=== PATIENT | female | born 1970 | race African-American/Black ===

== ENCOUNTER 2019-04-10 12:13 | Inpatient (IN) ==
[2019-04-10] MEDS ORDERED: NS 1,000 ML IV ONE (12:48)
[2019-04-10] MEDS ORDERED: APRESOLINE IV ONE (12:49)
[2019-04-10] MEDS ORDERED: XYLOCAINE-MPF 1% INJ ONE (12:49)
[2019-04-10] MEDS ORDERED: TORADOL IV ONE (12:49)
[2019-04-10] MEDS ORDERED: ROCEPHIN IM ONE (12:49)
[2019-04-10 12:53] LABS: URINE SOURCE CLEAN CATCH
[2019-04-10 12:57] LABS: BASO# 0.03 X1000 (0.0-0.2); BASO% 0.1 % (0.0-0.8); EOS# 0.02 X1000 (0.0-0.7); EOS% 0.1 % (0.0-10.0); HEMATOCRIT 35.2 % (37.0-47.0); HEMOGLOBIN 10.9 g/dL (12.0-16.0); IMM GRAN# 0.09 X1000 (0.0-0.04); IMM GRAN% 0.4 % (0.0-0.5); LYMPH% 14.8 % (20.5-51.1); MCH 21.2 PG (27-31); MCV 68.3 FL (81-99); MONO# 1.81 X1000 (0.11-0.59); MONO% 8.1 % (1.7-9.3); MPV 9.6 FL (7.4-10.4); NEUT# 17.09 X1000 (1.4-6.5); NEUT% 76.5 % (42.2-75.2); PLT 482 X1000 (130-400); RBC 5.15 XMIL (4.2-5.4); RDW 17.4 % (11.5-14.5); WBC 22.34 X1000 (4.8-10.8)
[2019-04-10 12:58] LABS: BILIRUBIN URINE NEGATIVE (NEGATIVE); BLOOD URINE NEGATIVE (NEGATIVE); COLOR STRAW; GLUCOSE URINE NEGATIVE (NEGATIVE); KETONE URINE NEGATIVE (NEGATIVE); LEUKOCYTES URINE NEGATIVE (NEGATIVE); NITRITE URINE NEGATIVE (NEGATIVE); PH URINE 6.5; PROTEIN URINE NEGATIVE (NEGATIVE); SP GRAVITY URINE 1.006; TURBIDITY URINE CLEAR (CLEAR); UROBILINOGEN URINE NORMAL (NORMAL)
[2019-04-10 13:02] LABS: INR 1.02; PROTIME 13.9 Seconds (11.0-16.0)
[2019-04-10 13:07] LABS: AGAP 12; ALBUMIN 4.2 g/dL (3.5-5.0); ALKALINE PHOSPHATASE 136 U/L (32-104); BUN 7 mg/dL (8-22); CALCIUM 9.4 mg/dL (8.8-10.2); CHLORIDE 99 mmol/L (98-107); CK PROFILE 79 U/L (24-173); COSMO 263; CREATININE 0.9 mg/dL (0.5-0.9); ESTIMATED GFR > 60; GLUCOSE 110 mg/dL (70-104); GOT 15 U/L (10-30); GPT 15 U/L (10-36); POTASSIUM 4.2 mmol/L (3.5-5.1); SODIUM 132 mmol/L (136-145); TCO2 21 mmol/L (25-35); TOTAL PROTEIN 7.4 g/dL (6.3-8.3)
[2019-04-10] MEDS ORDERED: TYLENOL PO ONE (13:20)
[2019-04-10 13:21] LABS: BANDS 2 % (0-1); LYMPHS 16 % (21-51); MONO 4 % (1-9); SEGS 78 % (42-75)
[2019-04-10 13:43] LABS: UR EPITHELIAL CELLS <10 /HPF (<10); URINE BACTERIA 1+ /HPF; URINE YEAST NONE SEEN
--- NOTE | 2019-04-10 14:23 | Diag Imaging Result Doc PS360 ---
EXAM: CHEST-1 VIEW HISTORY: sepsis TECHNIQUE: Single view COMPARISON: None. FINDINGS: The lungs are well expanded. The heart is mildly enlarged. The vessels are not distended. There are no infiltrates. No effusion identified. IMPRESSION: Mild cardiomegaly Electronically signed by Manish 04/10/2019 2:21 PM
--- NOTE | 2019-04-10 14:41 | Diag Imaging Result Doc PS360 ---
EXAM: CT ABD/PELVIS W/IV CONT ONLY HISTORY: right flank pain and tender, right abd pain TECHNIQUE: CT abdomen and pelvis with intravenous contrast COMPARISON: 10/07/2016 FINDINGS: The gallbladder has been removed. No focal hepatic abnormality. Normal spleen, pancreas, adrenal glands, and kidneys. Normal aorta. Normal appendix. No abscess. There are many scattered colonic diverticula. No bowel obstruction. There is an approximately 7 x 8 x 9 cm mixed density lesion within the fundus of the uterus. There is also an 18 mm thick-walled left ovarian cyst. Urinary bladder is distended and appears normal. There is a fat filled left inguinal hernia. IMPRESSION: 1.Large degenerating uterine fibroid 2.Colonic diverticulosis 3.Cholecystectomy 4.Small thick-walled left ovarian cyst This exam was performed using automated exposure control, adjustment of mA or kV according to patient size, and/or use of iterative reconstruction technique. Electronically signed by Manish 04/10/2019 2:39 PM
[2019-04-10] MEDS ORDERED: ZOSYN 4.5 GM in NS 100 ML IV ONE (15:05)
[2019-04-10] MEDS ORDERED: VANCOMYCIN 1 GM/NS 1 GM/250 ML IVPB IV ONE (15:05)
[2019-04-10] MEDS ORDERED: DILAUDID IV ONE (15:24)
[2019-04-10] MEDS ORDERED: TYLENOL PO PRN ×2 (15:41→19:24)
[2019-04-10] MEDS ORDERED: NORCO-7.5 PO PRN (15:41)
[2019-04-10] MEDS ORDERED: ZOFRAN IV PRN ×2 (15:41→19:25)
[2019-04-10] MEDS ORDERED: VANCOMYCIN IV PER PHARMACY MISC SCH (15:45)
[2019-04-10] MEDS ORDERED: NS 1,000 ML IV SCH (15:45)
--- NOTE | 2019-04-10 16:01 | PROVIDER DOCUMENTATION ---
This chart was entered by Emily Vizcaino Scribe, acting as scribe for Galo Armas MD. HPI-Female /OB/Breast - General Chief Complaint: UTI Symptoms Stated Complaint: FEMALE / FEVER Time Seen by Provider: 04/10/19 12:38 Source: reports: patient Allergies/Adverse Reactions: Patient Allergies Allergy/AdvReac Type Severity Reaction Status Date / Time No Known Allergies Allergy Verified 06/18/18 06:00 Home Medications: Home Medication List Medication Instructions Recorded Confirmed Last Taken Type NK [No Home Medications] 04/10/19 04/10/19 Unknown History - History of Present Illness-Female /OB Nature of Presenting Problem: 48yof presents to ED cc right flank and RLQ pain, diarrhea, dysuria, bladder spasm, frequency for 3 weeks, chills and fever for 24hrs. Pt rpeorts she has hx of HTN but won't take her b/p meds because she doesn't like them. B/p is 189/120 upon exam. Does patient report she is ?: No Location of complaint: reports: right flank Radiation: reports: RLQ Quality of Pain: reports: sharp Severity in ED: reports: moderate Onset/Duration: reports: other (3 weeks) Timing: reports: still present Context/Activities at Onset: reports: moderate activity Vaginal Symptoms: reports: no symptoms Vaginal Bleeding Amount: None Urinary Symptoms: reports: dysuria, frequency, low back pain Related Symptoms: reports: no symptoms Modifying Factors: worse with: urinating Associated Symptoms: reports: back/neck pain (back), diarrhea, fever/chills Similar Symptoms Previously?: No Recently seen or treated by another doctor?: No Review of Systems - Adult - REVIEW OF SYSTEMS - ADULT Constitutional: reports: see HPI, chills, fever. denies: fatique Eyes: reports: no symptoms reported Ears, Nose, Mouth & Throat: reports: no symptoms reported Cardiovascular: reports: no symptoms reported Respiratory: reports: no symptoms reported Gastrointestinal: reports: see HPI, abdominal pain (RLQ), diarrhea. denies: vomiting Genitourinary: reports: see HPI, dysuria, frequency, flank pain (right), other (bladder spasm) Musculoskeletal: reports: no symptoms reported Integumentary: reports: no symptoms reported Neurological: reports: no symptoms reported Psychiatric: reports: no symptoms reported Endocrine: reports: no symptoms reported Hematologic/Lymphatic: reports: no symptoms reported Allergic/Immunologic: reports: no symptoms reported All Other Systems: Reviewed and Negative Past History - Adult - PAST MEDICAL HISTORY-ADULT Review of Records: reports: Nursing Assessment Review, Medications Reviewed, Social history reviewed & non-contributory. Major Childhood Illnesses: reports: denies history Cardiovascular: reports: denies history, HTN (non compliance) Respiratory: reports: denies history Gastrointestinal: reports: cholelithiasis, GERD Obstetrical/Gynecological: reports: denies history Genitourinary: reports: denies history Musculoskeletal: reports: denies history Neurological: reports: denies history Endocrine/Immune: reports: denies history Other Conditions: reports: denies history - PRIOR SURGERIES/PROCEDURES Surgical/Procedure History: reports: cholecystectomy - IMMUNIZATION STATUS Childhood Immunizations: See Nurse Assessment Flu Vaccine: See Nurse Assessment - FAMILY HISTORY Family History: reviewed, not pertinent - SOCIAL HISTORY Smoking: cigarettes, less than 1 pack/day Provider spent 3-5 mins advising pt. on dangers of tobacco.: Discussed manners to quit use, and f/u contacts for add'l counseling. Physical Exam-General - PHYSICAL EXAM-ADULT Initial Vital Signs Reviewed: Yes - CONSTITUTIONAL General Appearance: alert, moderate distress. negative: anxious, combative - EYES Eyes: PERRL/EOMI, pink conjunctivae - HEAD, EARS, NOSE, MOUTH & THROAT HENMT: normocephalic/atraumatic, moist mucous membranes. negative: angioedema - NECK Neck: supple, normal inspection - RESPIRATORY Respiratory: chest non-tender, lungs clear, normal breath sounds, no respiratory distress, no accessory muscle use. negative: wheezing - CARDIOVASCULAR Cardiovascular: normal peripheral pulses, no edema, tachycardia. negative: bradycardia - GASTROINTESTINAL (ABDOMEN) Abdominal Exam: normal bowel sounds, soft, tenderness (RLQ) - MUSCULOSKELETAL Back Exam: no vertebral tenderness, CVA tenderness (right) Extremity: normal range of motion, normal inspection, normal capillary refill. negative: deformity - SKIN Integumentary: normal color, normal turgor. 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 negative: anxious, disheveled Progress - PLAN OF CARE/RESULTS Progress/Plan/Lab Results: Vital Signs - 8 hr 04/10/19 12:18 04/10/19 13:11 04/10/19 14:45 Temperature 102.6 F H 103.3 F H 99.2 F Pulse Rate 133 H 117 H 113 H Respiratory Rate 20 20 21 Blood Pressure 185/97 184/86 159/91 O2 Sat by Pulse Oximetry 95 100 97 Laboratory Results - last 24 hr 04/10/19 04/10/19 04/10/19 12:20 12:20 12:20 WBC 22.34 H RBC 5.15 Hgb 10.9 L Hct 35.2 L MCV 68.3 L MCH 21.2 L MCHC 31.0 L RDW Std Deviation 17.4 H Plt Count 482 H MPV 9.6 Immature Gran % (Auto) 0.4 Neut % (Auto) 76.5 H Lymph % (Auto) 14.8 L [place] % (Auto) 8.1 Eos % (Auto) 0.1 Baso % (Auto) 0.1 Immature Gran # (Auto) 0.09 H Neut # (Auto) 17.09 H Lymph # (Auto) 3.30 [place] # (Auto) 1.81 H Eos # (Auto) 0.02 Baso # (Auto) 0.03 Segmented Neutrophils 78 H Band Neutrophils 2 H Lymphocytes 16 L Monocytes 4 PT INR PTT (Actin FS) Sodium 132 L Potassium 4.2 Chloride 99 Carbon Dioxide 21 L Anion Gap 12 BUN 7 L Creatinine 0.9 Estimated GFR/1.73 m2 > 60 BUN/Creatinine Ratio 8 Glucose 110 H Calculated Osmolality 263 Calcium 9.4 Total Bilirubin 0.40 AST 15 ALT 15 Alkaline Phosphatase 136 H Creatine Kinase 79 Troponin T Total Protein 7.4 Albumin 4.2 Globulin 3.0 Albumin/Globulin Ratio 1.0 Plasma Lactate Urine Source CLEAN CATCH Urine Color STRAW Urine Turbidity CLEAR Urine pH 6.5 Ur Specific Norman 1.006 Urine Protein NEGATIVE Ur Glucose (Stick) NEGATIVE Ur Ketones (Stick) NEGATIVE Urine Blood NEGATIVE Urine Nitrite NEGATIVE Urine Bilirubin NEGATIVE Urobilinogen Dipstick NORMAL Urine Leukocytes NEGATIVE Urine WBC (Auto) 10-20 A Urine RBC (Auto) 10-20 A U Epithel Cells (Auto) <10 Urine Bacteria (Auto) 1+ Urine Crystals Not Reportable Small Round Cells Not Reportable Urine Casts Not Reportable Urine Yeast-like Cells NONE SEEN Urine Test 04/10/19 04/10/19 04/10/19 12:20 12:20 12:20 WBC RBC Hgb Hct MCV MCH MCHC RDW Std Deviation Plt Count MPV Immature Gran % (Auto) Neut % (Auto) Lymph % (Auto) [place] % (Auto) Eos % (Auto) Baso % (Auto) Immature Gran # (Auto) Neut # (Auto) Lymph # (Auto) [place] # (Auto) Eos # (Auto) Baso # (Auto) Segmented Neutrophils Band Neutrophils Lymphocytes Monocytes PT 13.9 INR 1.02 PTT (Actin FS) 33.0 Sodium Potassium Chloride Carbon Dioxide Anion Gap BUN Creatinine Estimated GFR/1.73 m2 BUN/Creatinine Ratio Glucose Calculated Osmolality Calcium Total Bilirubin AST ALT Alkaline Phosphatase Creatine Kinase Troponin T < 0.010 Total Protein Albumin Globulin Albumin/Globulin Ratio Plasma Lactate 1.0 Urine Source Urine Color Urine Turbidity Urine pH Ur Specific Norman Urine Protein Ur Glucose (Stick) Ur Ketones (Stick) Urine Blood Urine Nitrite Urine Bilirubin Urobilinogen Dipstick Urine Leukocytes Urine WBC (Auto) Urine RBC (Auto) U Epithel Cells (Auto) Urine Bacteria (Auto) Urine Crystals Small Round Cells Urine Casts Urine Yeast-like Cells Urine Test 04/10/19 12:46 WBC RBC Hgb Hct MCV MCH MCHC RDW Std Deviation Plt Count MPV Immature Gran % (Auto) Neut % (Auto) Lymph % (Auto) [place] % (Auto) Eos % (Auto) Baso % (Auto) Immature Gran # (Auto) Neut # (Auto) Lymph # (Auto) [place] # (Auto) Eos # (Auto) Baso # (Auto) Segmented Neutrophils Band Neutrophils Lymphocytes Monocytes PT INR PTT (Actin FS) Sodium Potassium Chloride Carbon Dioxide Anion Gap BUN Creatinine Estimated GFR/1.73 m2 BUN/Creatinine Ratio Glucose Calculated Osmolality Calcium Total Bilirubin AST ALT Alkaline Phosphatase Creatine Kinase Troponin T Total Protein Albumin Globulin Albumin/Globulin Ratio Plasma Lactate Urine Source Urine Color Urine Turbidity Urine pH Ur Specific Norman Urine Protein Ur Glucose (Stick) Ur Ketones (Stick) Urine Blood Urine Nitrite Urine Bilirubin Urobilinogen Dipstick Urine Leukocytes Urine WBC (Auto) Urine RBC (Auto) U Epithel Cells (Auto) Urine Bacteria (Auto) Urine Crystals Small Round Cells Urine Casts Urine Yeast-like Cells Urine Test NEGATIVE Orders Category Date Time Status Admit - [facility] Routine AdmDCTranf 04/10/19 15:41 Active Cardiac Monitoring DIRECTED Care 04/10/19 12:46 Active IV Insertion ORDERED Care 04/10/19 12:46 Completed Notify MD of + Sepsis Screen NOW Care 04/10/19 12:46 Active Notify Physician As Ordered Care 04/10/19 12:46 Active Nursing- MD Consult Request ROUTINE Care 04/10/19 15:37 Active MD [Physician/Provider Consults] Routine Cons 04/10/19 15:37 Ordered Regular Diet Diet 04/10/19 15:41 Active CHEST-1 VIEW [RAD] Stat Exams 04/10/19 12:[address] ABD/PELVIS W/IV CONT ONLY [CT] Stat Exams 04/10/19 14:15 Completed BLOOD CULTURE [BLDCUL] Stat Lab 04/10/19 12:46 Results CBC WITH DIFF [HEME] Stat Lab 04/10/19 12:20 Completed CK PROFILE [SP CHEM] Stat Lab 04/10/19 12:20 Completed COMPREHENSIVE METABOLIC PANEL [CHEM] Stat Lab 04/10/19 12:20 Completed LACTATE, PLASMA [CHEM] Lab 04/10/19 12:20 Completed LACTATE, PLASMA [CHEM] Lab 04/10/19 16:00 Uncollected LACTATE, PLASMA [CHEM] Lab 04/10/19 19:00 Uncollected TEST-URINE [PREG] Stat Lab 04/10/19 12:46 Completed PROTIME WITH INR [COAG] Stat Lab 04/10/19 12:20 Completed PTT [COAG] Stat Lab 04/10/19 12:20 Completed TROPONIN T Stat Lab 04/10/19 12:20 Completed URINALYSIS W/POSS RFLX CULT [URINALYSIS] Stat Lab 04/10/19 12:20 Completed URINE CULTURE [RM] Routine Lab 04/10/19 13:43 Ordered URINE MANUAL MICROSCOPIC [URINALYSIS] Stat Lab 04/10/19 12:20 Completed 0.9% Sodium Chloride Inj [Ns] 1,000 ml Med 04/10/19 15:45 Ordered IV 75 mls/hr 0.9% Sodium Chloride Inj [Ns] 1,000 ml Med 04/10/19 12:48 Discontinued IV 999 mls/hr Acetaminophen [Tylenol] Med 04/10/19 13:20 Discontinued 1,000 mg PO NOW ONE Acetaminophen [Tylenol] Med 04/10/19 15:41 Ordered 650 mg PO Q6H PRN PRN CefTRIAXONE [Rocephin] Med 04/10/19 12:49 Discontinued 1 gm IM NOW ONE Hydralazine [Apresoline] Med 04/10/19 12:49 Discontinued 20 mg IV NOW ONE Hydrocodone/APAP 7.5 mg/325 mg [Valders-7.5] Med 04/10/19 15:41 Ordered See Dose Instructions PO Q4H PRN Hydromorphone [Dilaudid] Med 04/10/19 15:24 Discontinued 0.5 mg IV NOW ONE Ketorolac [Toradol] Med 04/10/19 12:49 Discontinued 30 mg IV NOW ONE Lidocaine 1% Pf [Xylocaine-Mpf 1%] Med 04/10/19 12:49 Discontinued 5 ml INJ NOW ONE Ondansetron [Zofran] Med 04/10/19 15:41 Ordered 4 mg IV Q4H PRN PRN Pharmacy Order [Vancomycin IV Per Pharmacy] Med 04/10/19 15:45 Ordered 1 each MISC DIRECTED Piperacillin/Tazobactam [Zosyn] 3.375 gm Med 04/10/19 21:00 Ordered 0.9% Sodium Chloride Inj [Ns] 50 ml IV Q6H Piperacillin/Tazobactam [Zosyn] 4.5 gm Med 04/10/19 15:05 Active 0.9% Sodium Chloride Inj [Ns] 100 ml IV NOW Vancomycin 1 gm/Ns Med 04/10/19 15:05 Active 1 gm in 250 ml IV NOW Oxygen Device Stat Oth 04/10/19 12:46 Active Transfer/Admit Order [TRANSFER] Routine Transfer 04/10/19 15:37 Ordered Result Diagrams: 04/10/19 12:20 04/10/19 12:20 - XRAY 1 XRAY: Bilateral XRAY Study: Chest Impression: See EMR Report (IMPRESSION: Mild cardiomegaly Electronically signed by Manish 04/10/2019 2:21 PM) - CT/MRI 1 CT Study: Abdomen, Pelvis Impression: See EMR Report (IMPRESSION: 1.Large degenerating uterine fibroid 2.Colonic diverticulosis 3.Cholecystectomy 4.Small thick-walled left ovarian cyst This exam was performed using automated exposure control, adjustment of mA or kV according to patient size, and/or use of iterative reconstruction technique. Electronically signed by Manish 04/10/2019 2:39 PM) - CONSULTS/PCP/HOSPITALIST Notification #1 *Consult/PCP/Hospitalist*: Dr. Woods Time Discussed: 15:30 (GLAD TO CONSULT AT [facility]) Consult Disposition: other (would like pt admitted to hospitalist) #2 Consult: Dr. Kennedy Time Discussed: 15:30 Consult Disposition: Admit (will transfer to [facility]) Departure - Departure Date of Disposition Decision: 04/10/19 Time of Disposition Decision: 15:34 DIAGNOSIS: Uterine mass Leukocytosis, unspecified Qualifiers: Leukocytosis type: unspecified Qualified Code(s): D72.829 - Elevated white blood cell count, unspecified Fever Qualifiers: Fever type: unspecified Qualified Code(s): R50.9 - Fever, unspecified Abdominal pain Qualifiers: Abdominal location: right lower quadrant Qualified Code(s): R10.31 - Right l ower quadrant pain HTN (hypertension) Qualifiers: Hypertension type: essential hypertension Qualified Code(s): I10 - Essential (primary) hypertension Disposition: ADMITTED INPATIENT 09 Certified Medical Emergency: Emergent Condition: Stable Additional Instructions: ED Follow Up Instructions: You have been treated by a care provider in the Emergency Department. These instructions are being provided to you so you can have an understanding of how to care for yourself upon discharge. Upon discharge from the Emergency Department, you are responsible for making arrangements for follow-up care by a physician of your choice. Take all prescribed medications as directed. Return to the Emergency Department immediately for any new or worsening symptoms. You may call the Physician Referral phone number at [phone] to obtain a list of Physicians who are taking new patients. Referrals and Follow-Ups: None,PCP [Primary Care Provider] - Discharge Education: Steps to Quit Smoking, [id number] - Critical Care Note This patient required my direct & personal management of CC.: No Attestation - Physician/ SNEHA Attestation Patient care was provided by Advanced Practice Provider:: No The physician spent face to face time with patient:: Yes Advanced Practice Provider documentation review:: Supervising physician onsite and consulted in the evaluation and care of this patient. The physician did have a face to face encounter with the patient. This chart was documented by the indicated leesaibdarinel, (Emily Vizcaino, Scribe) and accurately reflects the services I performed and decisions made by me, Galo Armas MD, as attested by the provider's signature.
[2019-04-10] MEDS ORDERED: VANCOMYCIN 2,000 MG in NS 500 ML IV ONE (17:00)
[2019-04-10 18:17] LABS: HEMOGLOBIN A1C 5.8 % (4.8-6.0)
[2019-04-10 18:44] LABS: BASO# 0.03 X1000 (0.0-0.2); BASO% 0.2 % (0.0-0.8); EOS# 0.04 X1000 (0.0-0.7); EOS% 0.2 % (0.0-10.0); HEMOGLOBIN 9.7 g/dL (12.0-16.0); IMM GRAN# 0.05 X1000 (0.0-0.04); IMM GRAN% 0.3 % (0.0-0.5); LYMPH# 2.42 X1000 (1.2-3.4); LYMPH% 13.5 % (20.5-51.1); MCH 21.5 PG (27-31); MCHC 31.3 g/dL (33-37); MCV 68.6 FL (81-99); MONO# 1.38 X1000 (0.11-0.59); MONO% 7.7 % (1.7-9.3); MPV 9.2 FL (7.4-10.4); NEUT# 13.96 X1000 (1.4-6.5); NEUT% 78.1 % (42.2-75.2); PLT 393 X1000 (130-400); RBC 4.52 XMIL (4.2-5.4); RDW 17.1 % (11.5-14.5); WBC 17.88 X1000 (4.8-10.8)
--- NOTE | 2019-04-10 19:11 | Diag Imaging Result Doc PS360 ---
EXAM: US PELVIC NON-OB COMPLETE - 04/10/2019 HISTORY: uterine fibroid TECHNIQUE: Ultrasound pelvis. Exam performed using transabdominal probe. COMPARISON: None. FINDINGS: The uterus measures 15.1 x 2.3 x 9.4 cm in size. The uterus appears nongravid, with dual layer endometrial thickness of 2.2 cm. There is a 6 x 7 x 7.9 cm heterogeneous round solid lesion in the uterus on the left which is compatible with fibroid. The bilateral ovaries demonstrate blood flow signal Doppler images. There is no adnexal mass identified. There is no free fluid identified. IMPRESSION: 6 x 7 x 7.9 cm uterine fibroid. Electronically signed by Zafar Torres 04/10/2019 7:09 PM
[2019-04-10] MEDS: NORCO-7.5 PO PRN (20:45)
[2019-04-10] MEDS ORDERED: ZOSYN 3.375 GM in NS 50 ML IV SCH (21:00)
[2019-04-10] MEDS: ZOSYN 3.375 GM in NS 50 ML IV SCH (21:45)
[2019-04-10] MEDS: NS 1,000 ML IV SCH (21:45)
[2019-04-11] MEDS: ZOSYN 3.375 GM in NS 50 ML IV SCH ×4 (04:03→20:44)
--- NOTE | 2019-04-11 04:47 | HISTORY AND PHYSICAL ---
PRIMARY CARE PROVIDER: No one. CHIEF COMPLAINT: Suprapubic lower abdominal pain. HISTORY OF PRESENT ILLNESS: Ms. Diana Hart is a 48-year-old female who states for the last 2 months she has had almost continuous suprapubic type pain that radiates even into the legs. She never had any fevers until this morning she got up to 103.3 with body aches all over. She states she does have diarrhea that comes and goes. She has continuous nausea and on further questioning about menstrual cycles she still has a very regular menstrual cycle. It is usually around the beginning of the month. Occasionally, she does have times where she spots light pink occasionally. Imaging reveals that she has a large degenerating uterine fibroid. This is concern for what could be causing her fever. Dr. Woods was notified, and we are going to transfer her to [facility] for possible hysterectomy. Currently, we will be treating her with broad-spectrum antibiotics. PAST MEDICAL HISTORY: Hypertension. PAST SURGICAL HISTORY: Cholecystectomy. SOCIAL HISTORY: One pack per day smoker since age of 17. Denies alcohol or illicit drug use. She has an adult daughter, but she lives alone. 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 FAMILY HISTORY: Mother had unknown cancer. Father had a heart attack in his 60s. ALLERGIES: No known drug allergies. HOME MEDICATIONS: None. REVIEW OF SYSTEMS: Fourteen point review of systems are complete, and all are negative except for those mentioned above in HPI. PHYSICAL EXAMINATION: VITAL SIGNS: Temperature 98.9 degrees, heart rate 98, respiratory rate 24, blood pressure 151/83, and O2 saturation 97% on room air. GENERAL: Ms. Diana Hart is a 48-year-old female. She is in no acute distress. She is able to answer questions appropriately. HEENT: Atraumatic, normocephalic. Pupils equal, round, and reactive to light. Extraocular movements intact. Mucous membranes moist. NECK: Trachea midline. CARDIOVASCULAR: S1, S2. Regular rate and rhythm. No rubs, gallops, murmurs. No lower extremity edema. +2 dorsalis and radial pulses. Negative JVD or carotid bruits. PULMONARY: Clear to auscultation. Bilateral breath sounds. No accessory muscle use or work of breathing noted. GI: Soft and nontender, but tender in the suprapubic region. Positive bowel sounds x4. EXTREMITIES: Moves all extremities equally. Full range of motion. NEUROLOGIC: A and O x3. Follows commands. Sensory is intact. SKIN: Warm, dry, and intact. LABORATORY DATA: White blood cells 22,000, hemoglobin 10, hematocrit 35, and platelet count 482,000. INR is 1.02, PTT is 33. Sodium 132, potassium 4.2, BUN 7, creatinine 0.9, glucose 110, calcium 9.4, bilirubin 0.40, AST 15, ALT 15, and alkaline phosphatase is 136. CK 79, troponin less than 0.01. Albumin is 4.2. Lactate 1.0. Urinalysis 10 to 20 white blood cells, 10 to 20 red blood cells, and 1+ bacteria. No yeast. Negative test. IMAGING: Chest x-ray mild cardiomegaly. Abdominal and pelvic CT shows large degenerating uterine fibroid, colonic diverticulosis, cholecystectomy, and small thick-walled left ovarian cyst. ASSESSMENT AND PLAN: 1. Large degenerating uterine fibroid thought to be causing leukocytosis and fever. Dr. Woods with [facility]IO [facility] has been notified by the ER. The patient will be transferred to [facility] for possible hysterectomy. She will be started on broad-spectrum antibiotics, given IV fluids, and antiemetics for nausea. 2. History of hypertension, currently stable. 3. Deep venous thrombosis prophylaxis SCD's. 4. Tobacco abuse. Cessation discussed. Dictated by EDWARD Maurice for River Tolliver MD Addendum: Patient seen and examined by myself. Agree with EDWARD note. It reflects my assessment and plan. Patient is being admitted to hospital for abdominal pain and CT of abdomen showed large degenerating uterine fibroids. Will transfer patient to [place] and consult OB-CARDIO TECH. Will start broad spectrum antibiotics. cc: EDWARD Maurice MD [facility]
[2019-04-11] MEDS: VANCOMYCIN 1 GM/NS 1 GM/250 ML IVPB IV SCH ×2 (04:52→19:20)
[2019-04-11] MEDS ORDERED: VANCOMYCIN 1 GM/NS 1 GM/250 ML IVPB IV SCH (05:00)
--- NOTE | 2019-04-11 08:19 | CONSULTATION ---
DATE OF CONSULTATION: 04/10/2019 REASON FOR CONSULTATION: Uterine fibroid. REQUESTING PHYSICIAN: Dr. Kennedy. HISTORY OF PRESENT ILLNESS: 48-year-old woman G1, P1, 0-0-1 who presented with the chief complaint of right lower quadrant pain and right flank pain with associated fever for 1 day. She states that the right lower quadrant and flank pain has been chronic for the last 3 months but became acute this morning. She notes constant aching in her pelvis. She takes Aleve for the pain with moderate relief. She reports that the fever this morning started with associated chills and weakness. She denies any dysuria. She has had increased urinary frequency and urgency. She denies any nausea or vomiting. No tarry stools. No diarrhea. She has also noted associated shortness of breath. She denies any chest pains. She denies any vaginal bleeding currently, or abnormal discharge. REVIEW OF SYSTEMS: Negative except as mentioned in the HPI. PAST MEDICAL HISTORY: Positive for poorly controlled hypertension and obesity. OBSTETRICAL HISTORY: G1, P1, 0-0-1. G1 spontaneous vaginal delivery at term, female, 6 pounds, 12 ounces (1992). GYNECOLOGIC HISTORY: Her last menstrual period was on 03/22/2019. She states her last cycle was significant for moderate flow, passage of blood clots. Menses occurs monthly and lasts 5-6 days. On her heaviest days she uses 3-4 pads. She does experience intermittent cramping with her periods. She also notes intermenstrual bleeding that is similar to spotting. She denies any current vaginal bleeding. She does have a remote history of gonorrhea and trichomonas with treatment. She denies sexual activity currently and has 1 lifetime partner. [facility] She denies any history of abnormal PAP smears. She has never had a mammogram. PAST SURGICAL HISTORY: Laparoscopic cholecystectomy secondary to gallstones in 2011. SOCIAL HISTORY: She has smoked 1 pack per day for 30 years. She occasionally drinks alcohol. She denies any drug use. FAMILY HISTORY: Mother with renal failure on dialysis. She denies any family history of female cancer ALLERGIES: No known drug allergies. MEDICATIONS: see Home med list PHYSICAL EXAMINATION: Vital Signs: T max 103.3 at 1311. Temperature currently 99.2, heart rate 113, respiratory rate 21, blood pressure 159/91, oxygen saturation 100% on room air, BMI 36. LABORATORY DATA: White blood cell count 22, hemoglobin 10.9, hematocrit 35.2, platelets 482. PT 13.9, INR 1.02, PTT 33. Sodium 132, potassium 4.2, chloride 99, carbon dioxide 21, BUN 7, creatinine 0.9, blood sugar 102. AST 15, ALT 15. Urinalysis with 10-20 white blood cells, 10-20 red blood cells, less than 10 epithelial cells. Urine test negative. Lactate 0.9. IMAGING: CT abdomen and pelvis with IV contrast on 04/10/2019: Normal appendix, no abscess. There are many scattered colonic diverticula. No bowel obstruction. There is an approximately 7 x 8 x 9 cm fibroid lesion at the fundus of the uterus. There is also an 18 mm thick-walled left ovarian cyst. The bladder is distended and appears normal. There is a left inguinal hernia. Impression: 1. Large degenerating uterine fibroid. 2. Colonic diverticulosis. 3. Status post cholecystectomy. 4. Small thick-walled left ovarian cyst. Chest x-ray on 04/10/2019: Mild cardiomegaly. No infiltrates seen. PHYSICAL EXAMINATION: General: Alert, in no acute distress, obese. Cardiac: mild tachycardia, No murmurs or gallops. Lungs: clear to auscultation bilaterally, no respiratory distress Abdomen: Soft. Tender in the left lower quadrant with deep palpation. Normal bowel sounds. No rebound. No peritoneal signs. Extremities: No clubbing, cyanosis, or edema.Nontender. Pelvic Exam: Deferred at this time. ASSESSMENT/PLAN: A 48-year-old G1, P1, 0-0-1 with fever, leukocytosis, pelvic pain, uterine fibroid on CT, anemia, hypertension, obesity. 1. HD stable currently with mild tachycardia. Blood and urine culture drawn. Broad-spectrum antibiotics for fever and leukocytosis likely unrelated to uterine fibroid. She denies any bleeding or abnormal discharge at this time. 2. Will order a pelvic ultrasound to assess uterine fibroid. 3. Will trend complete blood counts and lactate. 4. IV fluid hydration. 5. Antiemetic, analgesics PRN 6. Urine Gc/Ch ordered 7. Will need outpatient pap smear and endometrial biopsy 8. Anemia likely secondary to heavy menses [facility]
[2019-04-11 08:30] LABS: INR 1.2; PROTIME 15.4 Seconds (11.0-16.0)
[2019-04-11 08:31] LABS: PTT 35.5 Seconds (22.3-41.8)
[2019-04-11 08:37] LABS: BASO# 0.02 X1000 (0.0-0.2); BASO% 0.1 % (0.0-0.8); EOS# 0.09 X1000 (0.0-0.7); EOS% 0.5 % (0.0-10.0); HEMATOCRIT 31.2 % (37.0-47.0); HEMOGLOBIN 9.8 g/dL (12.0-16.0); IMM GRAN# 0.04 X1000 (0.0-0.04); IMM GRAN% 0.2 % (0.0-0.5); LYMPH# 2.18 X1000 (1.2-3.4); LYMPH% 11.4 % (20.5-51.1); MCH 21.8 PG (27-31); MCHC 31.4 g/dL (33-37); MCV 69.5 FL (81-99); MONO# 1.58 X1000 (0.11-0.59); MONO% 8.2 % (1.7-9.3); MPV 10.2 FL (7.4-10.4); NEUT# 15.25 X1000 (1.4-6.5); NEUT% 79.6 % (42.2-75.2); PLT 452 X1000 (130-400); RBC 4.49 XMIL (4.2-5.4); WBC 19.16 X1000 (4.8-10.8)
[2019-04-11 08:46] LABS: AGAP 12; ALBUMIN 3.3 g/dL (3.5-5.0); ALKALINE PHOSPHATASE 116 U/L (32-104); BUN 8 mg/dL (8-22); CHLORIDE 102 mmol/L (98-107); COSMO 268; CREATININE 0.8 mg/dL (0.5-0.9); ESTIMATED GFR > 60; GLUCOSE 83 mg/dL (70-104); GOT 13 U/L (10-30); GPT 13 U/L (10-36); MAGNESIUM 1.8 mg/dL (1.5-2.7); POTASSIUM 3.9 mmol/L (3.5-5.1); SODIUM 135 mmol/L (136-145); TCO2 21 mmol/L (25-35); TOTAL BILIRUBIN 0.32 mg/dL (0.20-1.00); TOTAL PROTEIN 6.6 g/dL (6.3-8.3)
[2019-04-11] MEDS: NORCO-7.5 PO PRN ×2 (09:04→17:15)
[2019-04-11 09:11] LABS: CALCIUM 8.2 mg/dL (8.8-10.2)
[2019-04-11] MEDS: NS 1,000 ML IV SCH (13:43)
[2019-04-11] MEDS ORDERED: LABETALOL IV PRN (13:51)
--- NOTE | 2019-04-11 14:23 | EKG Report ---
Test Performed on : 04/11/2019 1:26:41 PM Test Reason : tachycardia Blood Pressure : / mmHG Vent. Rate : 095 BPM Atrial Rate : 095 BPM P-R Int : 154 ms QRS Dur : 084 ms QT Int : 360 ms P-R-T Axes : 046 111 040 degrees QTc Int : 452 ms Normal sinus rhythm. Right axis deviation Anterior infarct (cited on or before 11-AUG-2013) Abnormal ECG When compared with ECG of 11-AUG-2013 09:05, No significant change was found Confirmed by Vlad CRANDALL, P.J.M ([id number]) on 04/12/2019 5:38:47 PM
--- NOTE | 2019-04-11 16:40 | PROGRESS NOTE ---
DATE: 04/11/2019 INTERVAL HISTORY: Ms. Hart was transferred from an outside hospital to [facility] for a need for BAKERY WORKER evaluation. SUBJECTIVE: She states she is feeling much better today than she did yesterday. She is still complaining of some discomfort in the suprapubic and right lower quadrant. She had a fever overnight, and she is tachycardic with consistent leukocytosis. We discussed about sepsis. We discussed about bad infection. I answered all of her questions. She complains of urinary frequency and smelling of the urine, and lower abdominal pain. VITALS: Temperature of 103 degrees in the morning time, pulse of 117, respiratory rate 14, and blood pressure 175/95. She is saturating 99% on room air. PHYSICAL EXAMINATION: Morbidly obese not in acute distress. She is about to eat her lunch.Lungs: Air entry bilaterally equal. No wheeze, rhonchi, crackles. Cardiovascular: S1, S2 normal. Tachycardic. No murmur, rub, or gallop. I will get an EKG to evaluate her heart rhythm. Abdomen: Soft. Mild tenderness in suprapubic right lower quadrant. No rebound, guarding or rigidity. Extremities: No lower extremity edema. She is alert and oriented x3. LABORATORY: Labs suggestive of leukocytosis, microcytic anemia, normal coagulation, hyponatremia, and hypochloremia. MICROBIOLOGY: Blood culture in lab. IMAGING: Abdomen and pelvis CT had suggested 7 x 8 x 9 cm lesion within the fundus of the uterus as well as left ovarian cyst with normal urinary bladder. Pelvic ultrasound had suggested endometrial thickness of 2.2 cm and 6 x 7 x 8 cm lesion in the uterus compatible with fibroid. ASSESSMENT AND PLAN: 1. Sepsis of unclear etiology leading to leukocytosis, fever and tachycardia. Continue intravenous fluids and intravenous antibiotics. Follow up urine culture and blood culture results. 2. Uterine fibroid: Appreciate BAKERY WORKER recommendations about future hysterectomy. 2. Essential hypertension. She has not been on any medication. I will resume as needed medications. 3. She was counseled about tobacco abuse and stopping use of tobacco. DISPOSITION: I will continue to monitor patient inside the hospital as we await for further BAKERY WORKER recommendations, and need for hysterectomy. Plan of care discussed with the patient. All of her questions have been answered. She is in agreement. cc: Carlos Montero MD [facility]OSPITALScottie
[2019-04-12] MEDS: ZOSYN 3.375 GM in NS 50 ML IV SCH ×2 (03:30→09:36)
[2019-04-12] MEDS: VANCOMYCIN 1 GM/NS 1 GM/250 ML IVPB IV SCH (05:38)
[2019-04-12 07:23] VITALS: BP 146/77
[2019-04-12] MEDS: NORCO-7.5 PO PRN (07:26)
[2019-04-12 07:49] LABS: BASO# 0.04 X1000 (0.0-0.2); BASO% 0.3 % (0.0-0.8); EOS# 0.26 X1000 (0.0-0.7); EOS% 1.9 % (0.0-10.0); HEMATOCRIT 29.7 % (37.0-47.0); HEMOGLOBIN 9.3 g/dL (12.0-16.0); IMM GRAN# 0.04 X1000 (0.0-0.04); IMM GRAN% 0.3 % (0.0-0.5); LYMPH# 2.08 X1000 (1.2-3.4); LYMPH% 15.2 % (20.5-51.1); MCH 21.8 PG (27-31); MCHC 31.3 g/dL (33-37); MCV 69.6 FL (81-99); MONO# 1.38 X1000 (0.11-0.59); MONO% 10.1 % (1.7-9.3); MPV 9.8 FL (7.4-10.4); NEUT# 9.92 X1000 (1.4-6.5); NEUT% 72.2 % (42.2-75.2); PLT 402 X1000 (130-400); RBC 4.27 XMIL (4.2-5.4); RDW 17.1 % (11.5-14.5); WBC 13.72 X1000 (4.8-10.8)
--- NOTE | 2019-04-12 07:53 | OB/GYN PROGRESS NOTE ---
Progress Note [facility] - . Patient Problems: Current Active Problems Problem Status Onset HTN (hypertension) Acute Uterine mass Acute Leukocytosis, unspecified Acute Fever Acute Abdominal pain Acute [facility] Progress Note: Vital Signs - 24 hr 04/11/19 08:44 04/11/19 10:50 04/11/19 14:40 Temperature 99.1 F 99.0 F Pulse Rate 99 H Respiratory Rate 16 Blood Pressure 164/82 O2 Sat by Pulse Oximetry 97 99 04/11/19 19:05 04/11/19 19:45 04/12/19 04:00 Temperature 98.4 F 98.7 F Pulse Rate 99 H 82 Respiratory Rate 19 19 Blood Pressure 156/87 138/73 O2 Sat by Pulse Oximetry 97 97 100 04/12/19 07:22 Temperature 98.8 F Pulse Rate 81 Respiratory Rate 17 Blood Pressure 146/77 O2 Sat by Pulse Oximetry 04/12/19 00:30 Influenza Screen - Final Nasopharyngeal Laboratory Results - last 24 hr 04/11/19 04/11/19 04/11/19 06:53 06:53 06:53 WBC 19.16 H RBC 4.49 Hgb 9.8 L Hct 31.2 L MCV 69.5 L MCH 21.8 L MCHC 31.4 L RDW Std Deviation 17.0 H Plt Count 452 H MPV 10.2 Immature Gran % (Auto) 0.2 Neut % (Auto) 79.6 H Lymph % (Auto) 11.4 L Rich % (Auto) 8.2 Eos % (Auto) 0.5 Baso % (Auto) 0.1 Immature Gran # (Auto) 0.04 Neut # (Auto) 15.25 H Lymph # (Auto) 2.18 Rich # (Auto) 1.58 H Eos # (Auto) 0.09 Baso # (Auto) 0.02 PT 15.4 INR 1.20 PTT (Actin FS) 35.5 Sodium 135 L Potassium 3.9 Chloride 102 Carbon Dioxide 21 L Anion Gap 12 BUN 8 Creatinine 0.8 Estimated GFR/1.73 m2 > 60 BUN/Creatinine Ratio 10 Glucose 83 Calculated Osmolality 268 Calcium 8.2 L Magnesium 1.8 Total Bilirubin 0.32 AST 13 ALT 13 Alkaline Phosphatase 116 H Total Protein 6.6 Albumin 3.3 L Globulin 3.3 Albumin/Globulin Ratio 1.0 The pt is doing well. No complaints this morning. no fever overnight Urine culture and rapid flu test were negative VSSAF Gen: AAOx3 NAD CV: RRR no g/m/r Lungs: CTAB no w/rr Abd: +BS soft NT/ND Ext: no c/c/e A: fever of unknown origin-resolved abdominal pain-resolved fibroid uterus CHTN-BP labile obesity P: Pt needs to f-up with Dr. 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
[2019-04-12 08:10] LABS: AGAP 10; ALB/GLOB RATIO 0.9; ALKALINE PHOSPHATASE 100 U/L (32-104); BUN 7 mg/dL (8-22); CALCIUM 7.9 mg/dL (8.8-10.2); CHLORIDE 105 mmol/L (98-107); COSMO 270; CREATININE 0.6 mg/dL (0.5-0.9); ESTIMATED GFR > 60; GLUCOSE 93 mg/dL (70-104); GOT 14 U/L (10-30); GPT 13 U/L (10-36); MAGNESIUM 2.1 mg/dL (1.5-2.7); SODIUM 136 mmol/L (136-145); TCO2 21 mmol/L (25-35); TOTAL BILIRUBIN 0.23 mg/dL (0.20-1.00); TOTAL PROTEIN 6.4 g/dL (6.3-8.3)
--- NOTE | 2019-04-13 15:11 | DISCHARGE SUMMARY ---
ADMISSION DATE: 04/10/2019 DISCHARGE DATE: 04/12/2019 DISCHARGE DISPOSITION: Home. DISCHARGE CONDITION: Hemodynamically stable. She has not had any episodes of fever since at least 24 hours. Her leukocytosis is improving. So far, the culture data is negative. DISCHARGE DIAGNOSES: 1. Sepsis of unclear source. 2. Leukocytosis, fever, tachycardia likely viral syndrome. 3. Recent episode of sore throat. 4. Large degenerating uterine fibroid. 5. New diagnosis of essential hypertension. 6. Morbid obesity. 7. Active tobacco abuse. DISCHARGE MEDICATIONS: 1. Augmentin 875 125 mg tablet one tablet b.i.d., 6 tablets have been prescribed. 2. Amlodipine 5 mg daily, 30 tablets have been prescribed, 1 refill. VITALS: At time of discharge, temperature 98.8 degrees, pulse 81, respiratory rate 17, blood pressure 140/77, saturating 100% on room air. PHYSICAL EXAMINATION: Mouth: At the time of discharge, oral cavity is moist. Lungs: Air entry bilaterally equal. No wheeze, rhonchi, crackles. No murmur or gallop. Abdomen: Soft, obese, nontender. Extremity: There is no lower extremity edema. Neurologic: She is alert, oriented x3. There is no pharyngeal exudate or congestion. There is no cervical lymphadenopathy. SIGNIFICANT LABS: During hospital admission, she had WBC count of 22,000 which improved to 13,000 at the time of discharge, hemoglobin 9.3, platelet 402. Her BUN is 7, creatinine 0.6. Her urinalysis had 10 to 12 WBCs. Blood culture, urine culture did not have any growth to date. Influenza screen was negative. SIGNIFICANT IMAGING: During hospital admission, chest x-ray on admission had mild cardiomegaly. Abdomen/pelvis CT had large degenerating uterine fibroid, colonic diverticulosis, cholecystectomy, thick-walled left ovarian cyst. Pelvic ultrasound had 6 x 7 x 8 cm uterine fibroid. EKG on admission had normal sinus rhythm, right axis deviation. HOSPITAL COURSE SUMMARY: Ms. Hart is a 49-year-old lady, who presented on 04/10/2019 with chief complaint of suprapubic lower abdominal pain of about 2 months duration which was radiating sometimes into anterior part of the thigh, which was progressively getting worse. However, on the day of presentation, she developed fever of 103.3 with body ache all over. She also had diarrhea which used to come and go. Continuous nausea and sore throat. So, with these complaints, she came to the emergency room where she was found to be febrile, tachycardic, had leukocytosis, so the hospitalist team was consulted for further management, and patient was admitted for presumed sepsis. She was started on intravenous fluid, broad-spectrum intravenous antibiotics, and gynecology team was consulted for large uterine fibroid. There were initial concerns that the fibroid could be a degenerative fibroid and causing her to have fever and leukocytosis. However, after detailed evaluation gynecology team had debunked that as a possible etiology. However, with antibiotics and fluid, her clinical condition significantly improved. She was no longer having diarrhea. Her sore throat had significantly improved. She did not have chest pain, shortness of breath, cough, nausea, vomiting, abdominal pain, burning urination and blood culture, urine culture data were negative. It was unclear what was the source of her sepsis. The patient was advised to stay back in the hospital so that she could be monitored at least for 24 more hours to make sure her fever does not return; however, patient refused and she cited many reasons including she wanted to go home. She did not have insurance, etc. to request discharge. I extensively counseled her that she should come back to the emergency room if she develops any signs of sickness, illness, fever, or symptoms and she agreed to it. I will discharge her on oral antibiotics. Considering her recent history of sore throat, it was possible that she had a viral prodrome causing high-grade fever and tachycardia on presentation. TIME SPENT: More than 30 minutes of time was spent discharging this patient. Plan of care was extensively discussed with her. All questions were answered. cc: MD CHRISTOS Reid
== END 2019-04-12 15:59 | disposition home or self-care (01) | DRG 872 ==
LOC: P.ED 12:13 → 3N 19:06 → SUATTDRO 19:06 → 3N 20:01
PROVIDERS: ATTEND Internal Medicine